=== PATIENT | male | born 1970 | race Caucasian/White ===

== ENCOUNTER 2023-05-01 12:52 | Emergency (ER) | payer SELFPAY ==
[2023-05-01 13:09] VITALS: BP 223/125; PULSE 64; RESP 16; TEMP 36.4; O2SAT 98; BMI 31.9
[2023-05-01 13:33] LABS: Basophils % 0.6 %; Eosinophils # 0.1 10^3/uL (0.0-0.8); Eosinophils % 1.7 %; Hematocrit 42.8 % (37-53); Lymphocytes # 1.3 10^3/uL (0.8-4.8); Lymphocytes % 20.6 %; Mean Corpuscular HGB Conc 33.6 g/dL (30-55); Mean Corpuscular Hemoglobin 30.3 pg (27-33); Mean Corpuscular Volume 89.9 fl (82-101); Mean Platelet Volume 9.3 fL (7.4-10.4); Monocytes # 0.5 10^3/uL (0.2-0.9); Monocytes % 7.6 %; Neutrophils % 69.3 %; Nucleated Red Blood Cells % 0 %; Platelet Count 327 10^3/cmm (157-399); Red Blood Count 4.76 10^6/uL (3.85-5.65); Red Cell Distribution Width 11.8 % (12.1-15.1); White Blood Count 6.49 10^3/uL (3.29-11.43)
--- NOTE | 2023-05-01 13:44 | ED_ITS ---
HPI - Abdominal Pain 2 General: Chief Complaint: Abdominal Pain Stated Complaint: sent by luciano geller pain, blood in stool, n Time Seen by Provider: 05/01/23 13:44 Source: patient Mode of arrival: ambulatory History of Present Illness: 52-year-old male presents emergency room has had longstanding issues of chronic abdominal pain intermittent and waxing and waning last few days it has been more intense mostly in the left lower quadrant is also been accompanied by some rectal bleeding. He usually does take a fair amount of ibuprofen total of 800- 8000 throughout the day. He denies any constipation not had any diarrhea since pain that radiates down to his testicle he has had an episode of nephrolithiasis in the past states this does not feel like nephrolithiasis denies any dysuria urgency or frequency or any hematuria MD elicited complaint: abdominal pain Pertinent past history: kidney stones Onset (ago): year(s) (Worse last several days) Pain Consistency: constant Location: None Quality: cramping Radiation: none Exacerbating factors: nothing Relieving factors: nothing Associated Symptoms: Reports GI cramping; Denies anorexia, belching, bloating, change in bowel habits, change in stool character, chills, coffee ground emesis, constipation, diarrhea, dyspepsia, dysuria, excessive flatus, fever(s), heartburn, hematochezia, hematuria, hematemesis, fecal incontinence, loose stools, melena, nausea, poor appetite, syncope and vomiting Review of Systems 2 Const: Denies: fever(s) or chills Card: Denies: chest pain or syncope Resp: Denies: dyspnea GI: Reports: GI cramping; Denies: abdominal pain, nausea, vomiting, hematemesis, coffee ground emesis, heartburn, diarrhea, constipation, bloating, belching, excessive flatus, fecal incontinence, change in bowel habits, change in stool character, hematochezia or melena : Denies: dysuria, urinary frequency, urinary urgency or hematuria Musc: Denies: neck pain or back pain Skin/Breast: Denies: rash PFSH ED 2 PFSH: Family History Mother Cancer avarian Sister Cancer breast Social History Smoking and tobacco/nicotine status: never used tobacco/nicotine Alcohol intake: never Physical Exam 2 Const: COMMON NORMALS: no acute distress GENERAL APPEARANCE: cooperative and comfortable ORIENTATION/CONSCIOUSNESS: Yes awake, Yes oriented to person, Yes oriented to place and Yes oriented to time HENMT: COMMON NORMALS: normocephalic, atraumatic and hearing grossly normal bilaterally HEAD & SCALP: normocephalic and atraumatic Resp: COMMON NORMALS: normal respiratory effort, No retractions, No use of accessory muscles and clear to auscultation bilaterally AUSCULTATION: clear to auscultation bilaterally Cardio: COMMON NORMALS: regular rate, regular rhythm and No murmurs present (Cardio) RATE: regular rate RHYTHM: regular rhythm GI: COMMON NORMALS: Soft to palpation and No hepatosplenomegaly present A USCULTATION: Yes normoactive bowel sounds PALPATION: Yes Soft to palpation, No Tenderness to palpation present (GI), No Guarding due to palpation present (GI) and Yes No hepatosplenomegaly present Extremity: COMMON NORMALS: normal to inspection, capillary refill normal, no clubbing, cyanosis or edema, no calf tenderness and no pedal edema Neuro: SENSORIUM/ORIENTATION: Yes oriented to person, Yes oriented to place and Yes oriented to time Skin: COMMON NORMALS: no rashes or lesions noted GENERAL SKIN EXAM: no rashes or lesions noted Course 2 Vital Signs: Vital signs: Vital Signs Temperature 97.5 F L 05/01/23 16:29 Pulse Rate 55 L 05/01/23 16:29 Respiratory Rate 16 05/01/23 16:29 Blood Pressure 178/126 05/01/23 16:29 Pulse Oximetry 96 05/01/23 16:29 Oxygen Delivery Me thod Room Air 05/01/23 14:13 MDM - Abdominal Pain Medical Decision Making CT shows nonobstructing rectal mass. Expedited referral to general surgery for colonoscopy avoid NSAIDs. If develops nausea vomiting worsening bleeding return to the emergency room. Medical Records I reviewed the patient's medical records. Lab Data I reviewed the patient's lab results. 05/01/23 13:26 05/01/23 13:26 Labs/Radiology: Laboratory Results WBC 6.49 10^3/uL (3.29-11.43) 05/01/23 13:26 RBC 4.76 10^6/uL (3.85-5.65) 05/01/23 13: Hgb 14.40 g/dL (11.27-16.99) 05/01/23 13: Hct 42.8 % (37-53) 05/01/23 13: MCV 89.9 fl (82-101) 05/01/23 13: MCH 30.3 pg (27-33) 05/01/23: MCHC 33.6 g/dL (30-55) 05/01/23 13: RDW 11.8 % (12.1-15.1) L 05/01/23 13: Plt Count 327 10^3/cmm (157-399) 05/01/23: MPV 9.3 fL (7.4-10.4) 05/01/23: Neut % (Auto) 69.3 % 05/01/23 13: Lymph % (Auto) 20.6 % 05/01/23 13: [place] % (Auto) 7.6 % 05/01/23: Eos % (Auto) 1.7 % 05/01/23 13: Baso % (Auto) 0.6 % 05/01/23: Neut # (Auto) 4.50 10^3/uL (1.8-7.7) 05/01/23: Lymph # (Auto) 1.3 10^3/uL (0.8-4.8) 05/01/23: [place] # (Auto) 0.5 10^3/uL (0.2-0.9) 05/01/23: Eos # (Auto) 0.1 10^3/uL (0.0-0.8) 05/01/23: Baso # (Auto) 0.0 10^3/uL (0.0-0.1) 05/01/23: Nucleated RBC % (auto) 0 % 05/01/23: Nucleated RBCs # 0.0 /100WBC 05/01/23: PT 13.20 SECONDS (12.1-14.9) 05/01/23: INR 0.97 (0.8-1.2) 05/01/23 13: Sodium 139 mmol/L (136-145) 05/01/23 13:26 Potassium 3.5 mmol/L (3.5-5.1) 05/01/23 13:26 Chloride 101 mmol/L (98-107) 05/01/23 13:26 Carbon Dioxide 29 mmol/L (22-29) 05/01/23 13:26 Anion Gap 12.5 (5-19) 05/01/23 13:26 BUN 15 mg/dL (6-20) 05/01/23 13:26 Creatinine 1.2 mg/dL (0.7-1.2) 05/01/23 13:26 GFR Calculation 63.6 mL/min (90-130) L 05/01/23 13:26 Glucose 141 mg/dL (65-115) H 05/01/23 13:26 Calculated Osmolality 291 mOsm/kg (285-295) 05/01/23 13:26 Calcium 8.9 mg/dL (8.5-10.5) 05/01/23 13:26 Total Bilirubin 0.3 mg/dL (0.15-1.2) 05/01/23 13:26 AST 36 U/L (0-40) 05/01/23 13:26 ALT 33 U/L (0-41) 05/01/23 13:26 Alkaline Phosphatase 91 U/L (40-130) 05/01/23 13:26 Total Protein 7.6 g/dL (6.6-8.7) 05/01/23 13:26 Albumin 3.9 g/dL (3.5-5.2) 05/01/23 13:26 Globulin 3.7 g/dL (1.3-4.6) 05/01/23 13:26 Lipase 42 U/L (13-60) 05/01/23 13:26 All radiology interpretation(s) finalized by discharge Discharge Plan Discharge Patient Disposition: Home Clinical Impression: Rectal mass Condition: Stable Prescriptions: No Action acetaminophen [Tylenol Extra Strength] 500 mg tablet 500 mg PO Q6H PRN Discharge Orders: Discharge ED (Routine); Ordered 05/01/23 Ordered By: Hari Murillo Patient Instructions: Opioid Safety, Pain Management Activity Restrictions/Additional Instructions: Thank you for choosing [facility] for your healthcare needs today. Please realize this is an emergency room and that we are providing you with a medical screening exam and this may not be complete and all inclusive of all the testing and or work up that you may need to determine your ailment or severity of your illness. It is very important that you follow up as instructed or that you return to the Emergency Department should you have concerns or if your condition changes or worsens in any way. 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
[2023-05-01 13:45] LABS: INR 0.97 (0.8-1.2)
--- NOTE | 2023-05-01 13:54 | CT_ITS ---
WS: [id number] CT ABDOMEN AND PELVIS WITH CONTRAST HISTORY: abd pain, LEFT lower quadrant pain. TECHNIQUE: Imaging performed of the abdomen and pelvis with IV contrast. Single phase imaging of the abdomen. Coronal and sagittal reformats are submitted. All CT scans at [facility] use at [address] one of these dose optimization techniques: automated exposure control; mA and/or kV adjustment per patient size (includes targeted exams where dose is matched to clinical indication); or iterative re construction. IV CONTRAST: Omnipaque 350; 100 mL IV. Oral contrast: No DLP: 1111.36 mGy.cm COMPARISON: None available. Lower thorax: Lung bases are clear. Heart is normal size. Small hiatal hernia. Liver/biliary system: Liver is normal size. Very subtle areas of decreased attenuation in the liver w ith mild displacement of the adjacent vessels. The largest area in the RIGHT lobe measures 3.2 x 2.3 cm. Some of these areas within the liver have mild enhancement within the borders. There are at least 5 liver lesions identified. These have very subtle areas of decreased enhancement. No bile duct dila tation. Gallbladder: Normal. No gallstones or wall thickening. No pericholecystic fluid. Pancreas: Normal size pancreas and pancreatic duct. No adjacent inflammation. Spleen: Normal size spleen. No mass or infarct. Adrenal glands: Normal. Right kidney: Simple cyst superior medial kidney measures 3.8 x 2.8 cm. Additional subcentimeter cyst lower pole cortex. No obstruction. Left kidney: No obstruction. Cortical cyst lower pole 1.0 cm. Aorta: Normal. Lymphadenopathy: Several retroperitoneal lymph nodes are identified. Lymph nodes begin near the aorti c bifurcation. Left-sided lymph nodes with the largest in the cluster measuring 1.5 cm. There are add itional lymph nodes in the central pelvis measuring up to 1.7 cm. There is a soft tissue mass with ir regular borders and enhancement in the deep pelvis measuring 4.1 x 5.0 cm. This mass is very closely associated with the rectosigmoid junction. Free fluid: None. GI tract: Nondistended stomach. No small bowel obstruction. Normal appendix. Numerous diverticula beg inning in the transverse and descending colon. Mild pericolonic stranding in the region of the sigmoi d colon. There is additional abnormal enhancement with luminal narrowing towards the rectosigmoid black ction. Highly suspicious for neoplasm at the rectosigmoid junction with additional wall thickening ex tending into the rectum. Abdominal wall: Unremarkable abdominal wall. No hernia. Pelvis: No free fluid within the pelvis. See lymphadenopathy section of this report for further deta ils of the adenopathy. Bones: Unremarkable. IMPRESSION: 1. Abnormal rectosigmoid junction with extension into the rectum. There is asymmetric wall thickenin g and narrowing of the lumen. Findings are highly suspicious for neoplasm. Recommend additional evalu ation by colonoscopy. 2. Soft tissue mass in the pelvis associated with the abnormal rectosigmoid junction suspicious for metastatic deposit. There are additional lymph nodes within the central pelvis and LEFT retroperitone um. Suspicious for metastatic disease. 3. There are 5 very subtle areas in the liver suspicious for metastatic disease. 4. Moderate distal diverticulosis.
[2023-05-01 13:55] LABS: Alanine Aminotransferase 33 U/L (0-41); Albumin Level 3.9 g/dL (3.5-5.2); Alkaline Phosphatase 91 U/L (40-130); Anion Gap 12.5 (5-19); Aspartate Amino Transferase 36 U/L (0-40); Blood Urea Nitrogen 15 mg/dL (6-20); Calcium 8.9 mg/dL (8.5-10.5); Carbon Dioxide 29 mmol/L (22-29); Chloride 101 mmol/L (98-107); Globulin 3.7 g/dL (1.3-4.6); Glomerular Filtration Rate 63.6 mL/min (90-130); Glucose 141 mg/dL (65-115); Lipase 42 U/L (13-60); Osmolality Calculated 291 mOsm/kg (285-295); Potassium 3.5 mmol/L (3.5-5.1); Sodium 139 mmol/L (136-145); Total Bilirubin 0.3 mg/dL (0.15-1.2); Total Protein 7.6 g/dL (6.6-8.7)
[2023-05-01 14:13] VITALS: BP 178/126; PULSE 55; O2SAT 96
[2023-05-01] MEDS: iohexol 350 mg/mL 500 mL Btl (per mL) IV (14:53)
[2023-05-01 16:29] VITALS: BP 178/126; PULSE 55; RESP 16; TEMP 36.4; O2SAT 96
--- NOTE | 2023-05-02 09:21 | DCPLANNER ---
Message sent to General surgery for follow up- Rectal sigmoid mass bleeding -
== END 2023-05-01 16:32 | disposition home or self-care (01) ==
PROVIDERS: Emergency Medicine; Emergency Provider Family Medicine
DX: K62.9 Disease of anus and rectum, unspecified (principal)
CPT/HCPCS: 36415; 74177; 80053; 83690; 85025; 85610; 99285; Q9967

== ENCOUNTER 2025-01-30 06:19 | Emergency (ER) | payer OTHER, SELFPAY ==
--- OUTSIDE RECORDS SUMMARY | 2025-01-30 06:27 | XMS_ITS | Patient Health Record ---
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 Name Role Phone Tyler Noriega MD Primary Care Provider James Velasquez Unavailable [phone] Allergies Allergen (clinical drug ingredient) Drug/Non Drug Allergy documented on EMR Reaction Allergy Type Onset Date Status tramadol Tramadol Unknown Drug Allergy Active Reason For Referral No Information Medications Medication SIG (Take, Route, Frequency, Duration) Notes Start Date End Date Status Capecitabine 500 MG Tablet as directed 4 tabs twice a day Orally repeat every 21 days Active Ondansetron 8 MG Tablet Disintegrating 1 tablet on the tongue and allow to dissolve as needed Orally Once a day Active Tylenol 325 MG Tablet 1 tablet as needed Orally every 4 hrs Active Prochlorperazine 10 MG Tablet 1 tablet as needed Orally Three times a day Active levoFLOXacin 500 MG Tablet 1 tablet Oral ly Once a day Not-Taking Social History Tobacco Use: Social History Observation Description Date Details (start date - stop date) Former Smoker NA - NA Social History Drugs/Alcohol: Social Info Question Answer Notes Drugs Have you used drugs other than those for medical reasons in the past 12 months? No Drug/Alcohol: Social Info Question Answer Notes AUDIT-C (Standard) Did you have a drink containing alcohol in the past year? No Points 0 Interpretation Negative Tobacco Use: Social Info Question Answer Notes Tobacco Control (Standard) Tobacco use: Former smoker How long has it been since you last smoked? Greater than 10 years Problems Problem Type SNOMED Code ICD Code Onset Dates Problem Status W/U Status Risk Notes Problem Hematochezia (427646875) Hematochezia (K92.1) Active confirmed Problem CT of abdomen abnormal (7997059197018775 7) Abnormal CT of the abdomen (R93.5) Active confirmed Problem Adenocarcinoma of sigmoid colon (013528997) Adenocarcinoma of sigmoid colon (C18.7) Active confirmed Plan Of Treatment No Information Insurance Providers Payer Name Payer Address Payer Phone Subscriber Number Group Number Insured Name Patient Relationship to Insured Coverage Start Date Coverage End Date [employer] [address] [address] [place] [address] [phone] [id number] BIMAL GEE Self - patient is the insured Medical (General) History Medical History History ICD Code rectal cancer Surgical History Surgery Date(Month/Year) L arm broken Colonoscopy 05/2023
[2025-01-30 06:29] VITALS: BP 145/98; PULSE 65; RESP 20; TEMP 36.6; O2SAT 99; BMI 30.3
[2025-01-30 06:50] LABS: Hematocrit 40.6 % (37-53); Hemoglobin 13.00 g/dL (11.27-16.99); Mean Corpuscular HGB Conc 32.0 g/dL (30-55); Mean Corpuscular Hemoglobin 27.8 pg (27-33); Mean Corpuscular Volume 86.9 fl (82-101); Nucleated Red Blood Cells % 0 %; Platelet Count 317 10^3/cmm (157-399); Red Blood Count 4.67 10^6/uL (3.85-5.65); White Blood Count 6.85 10^3/uL (3.29-11.43)
--- NOTE | 2025-01-30 06:52 | ED_ITS ---
HPI - Abdominal Pain 2 General: Chief Complaint: Abdominal Pain Stated Complaint: N/V Pain dizzy Stage 4 Cancer Time Seen by Provider: 01/30/25 06:41 History of Present Illness: 54-year-old male presents to the emergen cy room with complaints of abdominal pain and bloating. Focal pain in the left lower quadrant. Patient has a known history of rectal CA with metastasis to the liver seen this patient about a year and a half ago for a rectal mass since then he has had chemotherapy he has never had any resection of it. He has had diminished stool output and lately has felt very constipated he has tried Dulcolax and magnesium citrate neither of which was successful. He is continue to have bloody bowel movement since he was seen a year and a half ago. He is currently not had any kind of chemo therapy for the last 3 months. He is in the process of trying to transfer his oncology care to [facility]. He previously had been being seen at [facility] in [place]. There was at 1 point discussion of resection of the primary tumor but he did not undergo that surgery. Associated Symptoms: Reports hematochezia, nausea and vomiting; Denies chills, coffee ground emesis, dysuria, fever(s) and hematemesis Related Data Home Medications ?Medication ?Instructions ?Recorded ?Confirmed acetaminophen 500 mg tablet 500 mg PO Q6H PRN 05/07/23 05/07/23 (Tylenol Extra Strength) Previous Rx's ?Medication ?Instructions ?Recorded hydrocodone 5 mg-acetaminophen 325 1 tab PO Q6H PRN pa in #20 tabs 01/30/25 mg tablet polyethylene glycol 3350 17 17 g PO BID #850 grams gram/dose oral powder (Powderlax) promethazine 25 mg tablet 25 mg PO Q6H PRN nausea and 01/30/25 vomiting #20 tabs Allergies Allergy/AdvReac Type Severity Reaction Status Date / Time tramadol Allergy ADR-Nausea Verified 05/07/23 11:03 Review of Systems 2 Const: Denies: fever(s) or chills Card: Denies: chest pain Resp: Denies: dyspnea GI: Reports: abdominal pain, nausea, vomiting, rectal pain and hematochezia; Denies: hematemesis or coffee ground emesis : Denies: dysuria, urinary frequency or urinary urgency Musc: Denies: neck pain or back pain Skin/Breast: Denies: rash PFSH ED 2 PFSH: Medical History Rectal cancer metastasized to liver Surgical History Hx of wrist replacement History of facial surgery Family History Mother Cancer avarian Sister Cancer breast Social History Smoking and tobacco/nicotine status: never used tobacco/nicotine Alcohol intake: never Physical Exam 2 Const: GENERAL APPEARANCE: cooperative ORIENTATION/CONSCIOUSNESS: Yes awake, Yes oriented to person, Yes oriented to place and Yes oriented to time HENMT: COMMON NORMALS: normocephalic, atraumatic and hearing grossly normal bilaterally HEAD & SCALP: normocephalic and atraumatic Resp: COMMON NORMALS: normal respiratory effort, No retractions, No use of accessory muscles and clear to auscultation bilaterally AUSCULTATION: clear to auscultation bilaterally Cardio: COMMON NORMALS: regular rate, regular rhythm and No murmurs present (Cardio) RATE: regular rate RHYTHM: regular rhythm GI: COMMON NORMALS: No hepatosplenomegaly present AUSCULTATION: Yes Hypoactive bowel sounds present PALPATION: Yes Tenderness to palpation present (GI) Details: LLQ, No Guarding due to palpation present (GI) and Yes No hepatosplenomegaly present Extremity: COMMON NORMALS: normal to inspection, capillary refill normal, no clubbing, cyanosis or edema, no calf tenderness and no pedal edema Neuro: SENSORIUM/ORIENTATION: Yes oriented to person, Yes oriented to place and Yes oriented to time Skin: COMMON NORMALS: no rashes or lesions noted GENERAL SKIN EXAM: no rashes or lesions noted Course 2 Vital Signs: Vital signs: Vital Signs Temperature 97.8 F 01/30/25 09:21 Pulse Rate 86 01/30/25 09:21 Respiratory Rate 16 01/30/25 09:21 Blood Pressure 163/95 01/30/25 09:21 Pulse Oximetry 99 01/30/25 09:21 Oxygen Delivery Me thod Room Air 01/30/25 07:34 MDM - Abdominal Pain Medical Decision Making Patient seen initially evaluated CBC CMP lipase UA CT abdomen pelvis with contrast ordered is for evaluation. Differential diagnosis includes bowel obstruction, obstructed rectal mass, diverticulitis, bowel perforation, anemia secondary to blood loss from tumor, rectal abscess, cystitis, pyelonephritis, nephrolithiasis. Significant increase in liver involvement of his metastasis was also increased lymph nodes of the abdomen of the pelvis. While the rectosigmoid area is not completely obstructed is increasing narrowing on the area which accounts for his discomfort and difficulty with passage of stool. Discussed with general surgery on-call they recommend referral to colorectal surgery on nonemergent basis for consideration of stent versus possible diverting colostomy for palliation. He has not had any kind of chemo for the last 3 weeks. He wants to get established at oncology here we have made an appointment he has an appointment early next week he was given the date and time. Will also work on colorectal surgery consultation for above. Reviewed all these findings with the patient start him on hydrocodone and promethazine as needed for his scapula full liquid diet additionally start him on MiraLAX 1 capful twice a day Medical Records I reviewed the patient's medical records. Lab Data I reviewed the patient's lab results. 01/30/25 06:30 01/30/25 06:30 Labs/Radiology: Radiology Impressions Abdomen/Pelvis CT 01/30/25 06:56 IMPRESSION: 1. Significant progression of metastatic disease throughout the liver. 2. Mass previously described at the rectosigmoid junction has significantly progressed. Increasing perirectal lymph nodes and stranding which may be extension of tumor. Large irregular enhancing mass extends anteriorly and to the LEFT narrowing the rectosigmoid lumen. 3. Progression of pelvic and retroperitoneal lymphadenopathy and metastatic deposits. 4. Sigmoid diverticulosis without acute diverticulitis. Laboratory Results WBC 6.85 10^3/uL (3.29-11.43) 01/30/25 06:30 RBC 4.67 10^6/uL (3.85-5.65) 01/30/25 06:30 Hgb 13.00 g/dL (11.27-16.99) 01/30/25 06:30 Hct 40.6 % (37-53) 01/30/25 06:30 MCV 86.9 fl (82-101) 01/30/25 06:30 MCH 27.8 pg (27-33) 01/30/25 06:30 MCHC 32.0 g/dL (30-55) 01/30/25 06:30 RDW 13.8 % (12.1-15.1) 01/30/25 06:30 Plt Count 317 10^3/cmm (157-399) 01/30/25 06:30 MPV 10.0 fL (7.4-10.4) 01/30/25 06:30 Neut % (Auto) 71.9 % 01/30/25 06:30 Lymph % (Auto) 14.9 % 01/30/25 06:30 [place] % (Auto) 9.1 % 01/30/25 06:30 Eos % (Auto) 3.1 % 01/30/25 06:30 Baso % (Auto) 0.6 % 01/30/25 06:30 Neut # (Auto) 4.93 10^3/uL (1.8-7.7) 01/30/25 06:30 Lymph # (Auto) 1.0 10^3/uL (0.8-4.8) 01/30/25 06:30 [place] # (Auto) 0.6 10^3/uL (0.2-0.9) 01/30/25 06:30 Eos # (Auto) 0.2 10^3/uL (0.0-0.8) 01/30/25 06:30 Baso # (Auto) 0.0 10^3/uL (0.0-0.1) 01/30/25 06:30 Nucleated RBC % (auto) 0 % 01/30/25 06:30 Nucleated RBCs # 0.0 /100WBC 01/30/25 06:30 Sodium 134 mmol/L (136-145) L 01/30/25 06:30 Potassium 4.2 mmol/L (3.5-5.1) 01/30/25 06:30 Chloride 92 mmol/L (98-107) L 01/30/25 06:30 Carbon Dioxide 25 mmol/L (22-29) 01/30/25 06:30 Anion Gap 21.2 (5-19) H 01/30/25 06:30 BUN 25 mg/dL (6-20) H 01/30/25 06:30 Creatinine 1.7 mg/dL (0.7-1.2) H 01/30/25 06:30 GFR Calculation 42.2 mL/min (90-130) L 01/30/25 06:30 Glucose 98 mg/dL (65-115) 01/30/25 06:30 Calculated Osmolality 282 mOsm/kg (285-295) L 01/30/25 06:30 Calcium 10.3 mg/dL (8.5-10.5) 01/30/25 06:30 Total Bilirubin 1.0 mg/dL (0.15-1.2) 01/30/25 06:30 AST 100 U/L (0-40) H 01/30/25 06:30 ALT 31 U/L (0-41) 01/30/25 06:30 Alkaline Phosphatase 360 U/L (40-130) H 01/30/25 06:30 Total Protein 8.9 g/dL (6.6-8.7) H 01/30/25 06:30 Albumin 4.4 g/dL (3.5-5.2) 01/30/25 06:30 Globulin 4.5 g/dL (1.3-4.6) 01/30/25 06:30 Lipase 43 U/L (13-60) 01/30/25 06:30 Urine Color Yellow (Yellow) 01/30/25 08:10 Urine Appearance Clear (CLEAR) 01/30/25 08:10 Urine pH 6.0 (5-7) 01/30/25 08:10 Ur Specific [place] 1.057 (1.005-1.030) H 01/30/25 08:10 Urine Protein 4+ (Negative) A 01/30/25 08:10 Urine Glucose (UA) Negative (Normal) 01/30/25 08:10 Urine Ketones Trace (Negative) 01/30/25 08:10 Urine Blood 3+ (Negative) A 01/30/25 08:10 Urine Nitrate Negative (Negative) 01/30/25 08:10 Urine Bilirubin Negative (Negative) 01/30/25 08:10 Urine Urobilinogen 1.0 mg/dL (Negative) 01/30/25 08:10 Ur Leukocyte Esterase Negative (Negative) 01/30/25 08:10 Urine RBC 21-50 /hpf (0-2) H 01/30/25 08:10 Urine WBC 6-10 /hpf (0-5) 01/30/25 08:10 Ur Squamous Epith Cells 0-5 /hpf (0-5) 01/30/25 08:10 Amorphous Sediment Not Reportable 01/30/25 08:10 Urine Bacteria None seen /hpf (NONE) 01/30/25 08:10 Hyaline Casts 14.06 /lpf 01/30/25 08:10 All radiology interpretation(s) finalized by discharge Discharge Plan Discharge Patient Disposition: Home Clinical Impression: Rectal cancer metastasized to liver Condition: Stable Prescriptions: New hydrocodone-acetaminophen 5-325 mg tablet 1 tab PO Q6H PRN (Reason: pain) Qty: 20 0RF promethazine 25 mg tablet 25 mg PO Q6H PRN (Reason: nausea and vomiting) Qty: 20 0RF polyethylene glycol 3350 [Powderlax] 17 gram/dose powder 17 g PO BID Qty: 850 2RF No Action acetaminophen [Tylenol Extra Strength] 500 mg tablet 500 mg PO Q6H PRN Discharge Orders: Discharge ED (Routine); Ordered 01/30/25 Ordered By: Hari Murillo Discharge Diet: Usual diet Discharge Activity: Increase activity as tolerated Patient Instructions: Abdominal Pain (ED), Opioid Safety, Pain Management, Patient Portal & Mervin Instructions Activity Restrictions/Additional Instructions: Thank you for choosing [facility] for your healthcare needs today. It is very important that you follow up as instructed or that you return to the Emergency Department should you have concerns or if your condition changes or worsens in any way. Emergency department visits are focused on emergent conditions, in some cases you may require further evaluation on an outpatient basis. You were seen in the emergency room with complaints of abdominal discomfort. Rectal cancer is still present the main tumor seems to have increased and is beginning to close off the rectum. As this advances he will become more more difficult to pass stool through this area. Or we we will refer you to colorectal surgery they can look at different treatment options to avoid this. The metastasis to the liver and the lymph nodes in the abdomen are more extensive than seen on the previous CT. Case management has made arrangements for you to have an appoint with oncology early next week to discuss treatment options. You are prescribed pain and nausea medications. Recommend a liquid diet and adding MiraLAX 1 capful twice a day. (Please note that included in your discharge packet is information concerning opioid safety and pain management. 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
--- NOTE | 2025-01-30 06:56 | CT_ITS ---
WS: [id number] CT ABDOMEN AND PELVIS WITH CONTRAST HISTORY: abd pain, lower abdominal pain. TECHNIQUE: Imaging performed of the abdomen and pelvis with IV contrast. Single phase imaging of the abdomen. Coronal and sagittal reformats are submitted. All CT scans at [facility] use at least one of these dose optimization techniques: automated exposure control; mA and/or kV adjustment per patient size (includes targeted exams where dose is matched to clinical indication); or iterative reconstruction. IV CONTRAST: Omnipaque 350; 100 mL IV. Oral contrast: No DLP: 855.20 mGy.cm COMPARISON: 05/01/2023 Lower thorax: Lung bases are clear. Heart is normal size. No hiatal hernia. Liver/biliary system: Liver is enlarged with numerous confluent metastatic lesions. Large portion of the liver is replaced with metastasis. The largest diameters are greater than 7 cm. No intrahepatic duct dilatation. Large lesion within the caudate lobe is causing displacement of the portal vein and also the IVC. Portal vein remains patent. Gallbladder: Normal. No gallstones or wall thickening. No pericholecystic fluid. Pancreas: Normal size pancreas and pancreatic duct. No adjacent inflammation. Spleen: Normal size spleen. No mass or infarct. Adrenal glands: 7 mm nodule LEFT adrenal gland. RIGHT adrenal gland is negative. Right kidney: No renal obstruction. Reidentified is a cyst extending medially from the upper pole. 9 mm indeterminate lesion from the inferior pole. Left kidney: No obstruction. Normal size kidney. Cortical cyst stable lower pole. Aorta: Normal. Lymphadenopathy: Retroperitoneal lymphadenopathy versus metastatic deposits noted. Largest irregular mass LEFT para-aortic 2.4 x 3.6 cm. Increasing metastatic deposits within the pelvis along the internal iliac chains. Bilateral pelvic lymph nodes. There is a large mass inseparable from the distal rectum measuring 3.0 x 4.8 cm. Mass extends anteriorly into the LEFT. Free fluid: None. GI tract: Stomach is not distended. No small bowel obstruction. No appendicitis. Numerous diverticula in the sigmoid colon. Reidentified is marked thickening of the rectosigmoid junction which has progressed since 05/01/2023. Narrowing of the lumen although there is no gross obstruction. Marked wall thickening measuring up to 2.3 cm. There is asymmetric wall thickening extending towards the anus. Stranding within the mesorectal fat and adjacent small lymph nodes. Abdominal wall: Fat containing umbilical hernia. Pelvis: No free fluid in the pelvis. Urinary bladder is minimally distended. Bones: Unremarkable. CT/CT abdomen pelvis w con* [id number] IMPRESSION: 1. Significant progression of metastatic disease throughout the liver. 2. Mass previously described at the rectosigmoid junction has significantly pr ogressed. Increasing perirectal lymph nodes and stranding which may be extensio n of tumor. Large irregular enhancing mass extends anteriorly and to the LEFT n arrowing the rectosigmoid lumen. 3. Progression of pelvic and retroperitoneal lymphadenopathy and metastatic de posits. 4. Sigmoid diverticulosis without acute diverticulitis.
[2025-01-30 07:04] LABS: Alanine Aminotransferase 31 U/L (0-41); Albumin Level 4.4 g/dL (3.5-5.2); Alkaline Phosphatase 360 U/L (40-130); Anion Gap 21.2 (5-19); Aspartate Amino Transferase 100 U/L (0-40); Blood Urea Nitrogen 25 mg/dL (6-20); Calcium 10.3 mg/dL (8.5-10.5); Carbon Dioxide 25 mmol/L (22-29); Chloride 92 mmol/L (98-107); Globulin 4.5 g/dL (1.3-4.6); Glucose 98 mg/dL (65-115); Lipase 43 U/L (13-60); Osmolality Calculated 282 mOsm/kg (285-295); Potassium 4.2 mmol/L (3.5-5.1); Sodium 134 mmol/L (136-145); Total Protein 8.9 g/dL (6.6-8.7)
[2025-01-30 07:34] VITALS: O2SAT 98
[2025-01-30] MEDS: iohexol 350 mg/mL 500 mL Btl (per mL) IV (07:40)
[2025-01-30 08:07] VITALS: BP 141/90
[2025-01-30 08:19] LABS: Glucose Urine UA Negative (Normal); Nitrate Urine Negative (Negative)
[2025-01-30 08:24] LABS: Add Urine Microscopic? YES
[2025-01-30 08:33] LABS: Specific Gravity, Urine 1.057 (1.005-1.030); UA Slide Review UA Slide Review Perf
[2025-01-30 09:21] VITALS: BP 163/95; PULSE 86; RESP 16; TEMP 36.6; O2SAT 99
--- NOTE | 2025-01-30 10:18 | DCPLANNER ---
I set the patient up for appointment to transfer his care to oncology here and not [facility] home. after getting records faxed to oncology with Dr. Nunez on Sunday02/02/25 at 8am, I called and talk to [facility] to make sure the appointment worked for them and let them know where to go and date and time. they was pleased with the appointment and I explained where to go.
--- NOTE | 2025-02-03 10:57 | DCPLANNER ---
sent referral to Fidelina chung
== END 2025-01-30 09:23 | disposition home or self-care (01) ==
PROVIDERS: Emergency Provider Family Medicine
DX: C20 Malignant neoplasm of rectum (principal); C78.7 Secondary malignant neoplasm of liver and intrahepatic bile duct
CPT/HCPCS: 74177; 80053; 81001; 83690; 85025; 87086; 96360; 96361; 99284; J7030

== ENCOUNTER 2025-02-27 11:38 | Oncology outpatient (recurring) (ONCR) | payer OTHER, SELFPAY ==
--- NOTE | 2025-02-27 11:30 | PETR_ITS ---
PROCEDURE INFORMATION: Exam: PET/CT Skull Base to Mid-thigh Exam date and time: 02/27/2025 12:42 PM Age: 54 years old Clinical indication: Condition or disease; Primary cancer: Rectal cancer metastasized to liver LABS AND CLINICAL REPORTS: Glucose: 107 mg/dl Treatment strategy for malignancy (PET staging): Initial Staging (PI) TECHNIQUE: Imaging protocol: Following at least four-hour fasting and following the injection of radiopharmaceutical, low dose CT images were obtained. Then, PET images were obtained. Attenuation corrected images were constructed using the CT scan. Fused images of PET and CT were reviewed. The standardized uptake values (SUV) reported below are maximum values within a region of interest, expressed in gm/ml. Exam includes orbital meatal line to mid-thigh. SUV normalization method: BodyWeight Radiopharmaceutical: 9.5 mCi F-18 FDG (Fluorodeoxyglucose), IV. Time of imaging post radiopharmaceutical administration: 50 minutes Injection site: right ac COMPARISON: CT abdomen pelvis w con* [id number] 01/30/2025 7:25 AM FINDINGS: Brain: Visualized brain has normal physiologic uptake. Pharynx: No abnormal uptake. Larynx: No abnormal uptake. Lungs, pleura and trachea: No abnormal uptake. Heart: Normal physiologic uptake. Mediastinal space: No abnormal uptake. Liver: Enlarged liver with diffuse peripherally FDG avid masses and central photopenia suggesting cystic/necrotic lesions, SUV max 9.0 at the left liver on axial image 152. Hypodense masses are seen to greater advantage on comparison contrast-enhanced CT. Gallbladder and biliary ducts: No abnormal uptake. Pancreas: No abnormal uptake. Spleen: No abnormal uptake. Adrenal glands: No abnormal uptake. Kidneys and ureters: Normal physiologic uptake. Photopenic exophytic medial right upper renal cyst. Stomach and bowel: Multifocal FDG avid irregular thickening with index masslike area at the rectosigmoid colon measuring approximately 5.5 cm (axial images 248-250) with appearance suggesting extraserosal extension SUV max 10.2 and more inferior anorectal FDG avid thickening showing SUV max 12.7 on axial image 277. Intraperitoneal and retroperitoneal spaces: Mild abdominopelvic ascites. Vasculature: No abnormal uptake. Ascending aortic ectasia measures 4.1 cm. Lymph nodes: FDG avid left lower retroperitoneal and pelvic lymphadenopathy with index delores conglomerate measuring 3.2 x 2.8 cm on axial image 221 with SUV max 6.1 and more inferior presacral delores conglomerate showing SUV max 7.5 on axial image 239. Rounded right pelvic node measures 1.5 cm on axial image 254 and shows SUV max 5.9. Skeleton: No abnormal uptake in the visualized axial and appendicular skeleton. Spondylosis, mild degenerative change of the acromioclavicular and sacroiliac joints. Soft tissues: No abnormal uptake in the visualized head, neck, chest, abdomen, pelvis, and extremities. Small fat containing left inguinal hernia. METRICS: Mediastinal blood pool: SUV mean 1.7 Liver uptake: SUV mean 2.1 PET/PET skull to thigh SUBS [id number] IMPRESSION: 1. Metastatic rectal cancer with index FDG avid rectosigmoid mass with likely extraserosal extension measuring 5 cm and less pronounced anorectal FDG avid irregular thickening. 2. Diffuse hepatic metastases. 3. Metastatic left lower retroperitoneal and bilateral pelvic lymphadenopathy. 4. Developed mild ascites. 5. Additional chronic and incidental findings as above.
== END 2025-03-18 23:59 | disposition home or self-care (01) ==
PROVIDERS: Visit Provider Internal Medicine Medical Oncology
DX: C20 Malignant neoplasm of rectum; C78.7 Secondary malignant neoplasm of liver and intrahepatic bile duct; R18.8 Other ascites; C78.6 Secondary malignant neoplasm of retroperitoneum and peritoneum; R59.1 Generalized enlarged lymph nodes; Z53.9 Procedure and treatment not carried out, unspecified reason
CPT/HCPCS: 78815; A9552